=== PATIENT | male | born 1995 | race Caucasian/White ===

== ENCOUNTER 2024-01-15 20:32 | Emergency (ER) | payer BC ==
[~2024-01-15] VITALS: Ht 175.3 cm; Wt 98.0 kg
[2024-01-15 20:44] VITALS: BP 120/79; PULSE 67; RESP 16; TEMP 97.7; O2SAT 99
[2024-01-15 22:03] LABS: ANION GAP 11.5 (8-16); BASOPHILS % (AUTO) 0.5 % (0.0-2.0); CALCIUM 9.2 mg/dL (8.5-10.1); CARBON DIOXIDE 31.9 mmol/L (21-32); CREATININE 1.2 mg/dL (0.6-1.3); EOSINOPHILS # (AUTO) 0.6 K/uL (0-0.4); EOSINOPHILS % (AUTO) 7.6 % (0.0-4.0); HEMOGLOBIN 16.2 g/dL (12.0-18.0); LYMPHOCYTES % (AUTO) 26.1 % (20.5-51.1); MEAN CORPUSCULAR HEMOGLOBIN 28 pg (27-31); MEAN CORPUSCULAR HGB CONC 33 g/dL (33-37); MEAN CORPUSCULAR VOLUME 84.7 fL (80-94); MONOCYTES # (AUTO) 0.8 K/uL (0.8-1.0); MONOCYTES % (AUTO) 9.9 % (1.7-9.3); NEUTROPHILS # (AUTO) 4.3 K/uL (1.8-7.7); NEUTROPHILS % (AUTO) 55.9 % (42.2-75.2); PLATELET COUNT (AUTO) 241 K/uL (140-450); POTASSIUM 4.4 mmol/L (3.5-5.1); RED BLOOD CELL COUNT(AUTO) 5.79 MIL/uL (4.20-6.10); WHITE BLOOD COUNT (AUTO) 7.6 K/uL (4.8-10.8)
[2024-01-15 22:08] LABS: ALBUMIN 4.4 g/dL (3.4-5.0); BILIRUBIN,DIRECT 0.1 mg/dL (0.0-0.3); TOTAL BILIRUBIN 0.5 mg/dL (0.0-1.0); TOTAL PROTEIN, SERUM 7.8 g/dL (6.4-8.2)
[2024-01-15 22:13] LABS: HIV RAPID SCREEN NON-REACTIVE (NON REACTIV)
[2024-01-15] MEDS ORDERED: TRU PO (22:26)
[2024-01-15] MEDS ORDERED: RALT400T PO (22:26)
== END 2024-01-15 22:34 | disposition home or self-care (01) ==
LOC: MED 20:32
DX: Z20.6 Contact with and (suspected) exposure to human immunodeficiency virus [HIV] (principal); J45.909 Unspecified asthma, uncomplicated; Z79.899 Other long term (current) drug therapy; Z88.8 Allergy status to other drugs, medicaments and biological substances
CPT/HCPCS: 36415; 80048; 80076; 85025; 86592; 87491; 99283